=== PATIENT | female | born 1945 | race Caucasian/White ===

== ENCOUNTER 2024-04-25 23:35 | Observation (INO) ==
[2024-04-25] MEDS ORDERED: NITROGLYCERIN SL 0.4 MG/TAB TAB SL PRN (23:53)
--- NOTE | 2024-04-25 23:59 | Emergency Department Note ---
History of Present Illness General Chief Complaint: Cardiac Assessment Stated Complaint: CHEST PAIN, ABNORMAL WATCH ECG Time Seen by Provider: 04/25/24 23:45 History of Present Illness Provider Complaint: chest pain Onset (ago): day(s) 1 Duration: constant and progressively worsening Onset: during rest Pain Location: substernal and left chest Pain Radiation: none Severity: moderate Maximum Pain Intensity: 5 Current Pain Intensity: 4 Quality: + heaviness and + dull Relieved By: + nothing Exacerbated By: + nothing Context: + recent travel; no recent illness, no recent surgery, no recent immobilization, no trauma/injury, no new medications or no history of DVT/PE Associated symptoms: + palpitations; no nausea, no vomiting, no diaphoresis, no dyspnea, no syncope, no fever or no cough On Xarelto for A-fib. Patient states she has not missed any doses. Past Med/Surg History Problem List (Updated 04/26/24 @ 01:03 by Roly Gamboa MD) Palpitations (Acute) Chest pain (Acute) Medical History No pertinent family history 1st degree AV block PVCs (premature ventricular contractions) HLD (hyperlipidemia) HTN (hypertension) A-fib Social History Smoking Status: Never smoker Feels Safe at Home: Yes Physical Exam Vital Signs Vital Signs - 24 hr 04/25/24 23:39 04/25/24 23:51 04/25/24 23:51 Temperature 36.7 C Temperature Source Skin Pulse Rate 75 76 76 Pulse Rate from SpO2 Sensor 76 Respiratory Rate 16 21 Respiratory Effort / Characteristics Non-Labored Respiratory Depth Normal Blood Pressure 149/76 H 137/78 Blood Pressure Mean 100 97 Pulse Oximetry 99 96 Oxygen Delivery Method Room Air Room Air Sepsis Recent Fever Within 48 Hours No Sepsis New/Unexplained Change in Mental Status No Sepsis Action Taken by Nursing No Action Required 04/26/24 00:09 04/26/24 00:19 04/26/24 00:20 Temperature Temperature Source Pulse Rate Pulse Rate from SpO2 Sensor Respiratory Rate Respiratory Effort / Characteristics Non-Labored Spontaneous Respiratory Depth Normal Blood Pressure Blood Pressure Mean Pulse Oximetry 96 96 Oxygen Delivery Method Room Air Room Air Room Air Sepsis Recent Fever Within 48 Hours Sepsis New/Unexplained Change in Mental Status Sepsis Action Taken by Nursing 04/26/24 00:30 Temperature Temperature Source Pulse Rate 70 Pulse Rate from SpO2 Sensor 69 Respiratory Rate 22 Respiratory Effort / Characteristics Respiratory Depth Blood Pressure 127/75 Blood Pressure Mean 92 Pulse Oximetry 96 Oxygen Delivery Method Room Air Sepsis Recent Fever Within 48 Hours Sepsis New/Unexplained Change in Mental Status Sepsis Action Taken by Nursing Physical Exam GENERAL: oriented to person, place, and time. appears well-developed and well- nourished. HENT: Exam performed. - Head: Normocephalic and atraumatic. EYES: Conjunctivae and EOM are normal. Right eye exhibits no discharge. Left eye exhibits no discharge. No scleral icterus. NECK: Normal range of motion. Neck supple. No JVD present. CV: Normal rate, regular rhythm, normal heart sounds and intact distal pulses. There is no peripheral edema. Palpable radial pulses bue. PULM/CHEST: Effort normal and breath sounds normal. No respiratory distress. No stridor. no wheezes. no rales. ABD: The abdomen is soft. There is no tenderness. NEURO: Motor and sensation grossly intact. SKIN: Skin is warm and dry. He is not diaphoretic. PSYCH: normal mood and affect. Behavior is normal. Judgment and thought content normal. Course Course 2345: The patient was evaluated in room B6. A complete history and physical exam was performed Cardiac monitoring: An order was placed for continuous cardiac monitoring. The monitor shows a rate of 80 with sinus rhythm interpreted by me 0103: Vital signs stable. Labs and imaging unremarkable. COVID testing still pending. [facility] team given her chest pain and palpitations. Dr. Cole team notified. Administered Medications Sodium Chloride (Nss) 1,000 mls @ 80 mls/hr IV .[id number] [facility] Stop: 05/25/24 23:44 Last Admin: 04/26/24 00:06 Dose: 80 mls/hr Documented By: DELORIS Discontinued Medications Aspirin (Aspirin Chew 324 Mg) 324 mg PO NOW STA Stop: 04/25/24 23:54 Last Admin: 04/26/24 00:07 Dose: 243 mg Documented By: DELORIS Hydrocodone Bit/Homatropine Methylb (Hydrocodone/Homatropine Syrup 5mg/1.5mg 5ml Udp) 5 ml PO NOW STA Stop: 04/26/24 00:11 Last Admin: 04/26/24 00:24 Dose: 5 ml Documented By: DELORIS Menthol (Cough Drop (Sugar Free) Amaya 24 Amaya/1 Box) 1 amaya BUCCAL NOW STA Stop: 04/26/24 00:11 Last Admin: 04/26/24 00:24 Dose: 1 amaya Documented By: DELORIS Medical Decision Making Laboratory Data Attestation: I reviewed the patient's lab results. 04/25/24 23:55 04/25/24 23:55 Labs: Lab Results 04/25/24 Range/Units 23:55 WBC 10.43 (4.8-10.8) K/ul RBC 4.04 L (4.20-5.40) M/uL Hgb 12.5 (12.0-16.0) g/dl Hct 37.1 (37.0-47.0) % MCV 91.8 (80.0-100.0) fL MCH 30.9 (25.0-34.0) pg MCHC 33.7 (32.0-36.0) g/dL RDW Std Deviation 42.8 (36.4-46.3) fL RDW Coeff of Harsh 12.6 (11.5-14.5) % Plt Count 313 (130-400) K/uL MPV 9.1 L (9.4-12.4) fL Immature Gran % (Auto) 0.4 % Neut % (Auto) 44.0 % Lymph % (Auto) 41.6 % [place] % (Auto) 10.3 % Eos % (Auto) 3.0 % Baso % (Auto) 0.7 % Neut # (Auto) 4.60 (1.40-6.50) K/uL Lymph # (Auto) 4.34 H (1.20-3.40) K/uL Columbia # (Auto) 1.07 H (0.11-0.59) K/uL Eos # (Auto) 0.31 (0.00-0.50) K/uL Baso # (Auto) 0.07 (0.00-0.20) K/uL Immature Gran # (Auto) 0.04 (0.01-0.20) K/uL Sodium 138 (136-145) mmol/L Potassium 3.7 (3.5-5.1) mmol/L Chloride 102 (98-107) mmol/L Carbon Dioxide 26 (21-32) mmol/L Anion Gap 10 (3-11) BUN 23 (6-23) mg/dl Creatinine 1.53 H (0.6-1.2) mg/dl Est Cr Clr Drug Dosing 29.0 ml/min Est GFR ( Amer) 37.6 ml/min Est GFR (Non-Af Amer) 32.5 ml/min BUN/Creatinine Ratio 15.0 (10-20) Glucose 95 (70-99(Fasting)) mg/dl Calcium 9.3 (8.6-10.3) mg/dl Magnesium 2.2 (1.7-2.4) mg/dl Troponin I High Sens 4.8 (0-14) pg/ml Lipase 19 (11-82) U/L Imaging Data Chest x-ray: Attestation: I personally reviewed and interpreted this imaging study as follows: My impression: Chest x-ray negative. Airway clear. No pneumothorax. No consolidation. No cardiomegaly or cephalization.. No free air under the diaphragm. No fractures of the skeletal structures. ECG Data Attestation: I personally reviewed and interpreted this ECG as follows: Rate (beats per minute): 77 Rhythm: normal sinus Findings: + 1st degree AV block; no ST depression, no ST elevation or no prolonged QT MDM Narrative 2345: The patient was evaluated in room B6. A complete history and physical exam was performed Cardiac monitoring: An order was placed for continuous cardiac monitoring. The monitor shows a rate of 80 with sinus rhythm interpreted by me 0103: Vital signs stable. Labs and imaging unremarkable. COVID testing still pending. Patient will be admitted to the [facility] hospitalist team given her chest pain and palpitations. Dr. Cole team notified. Impression & Plan Chest pain, Palpitations Discharge Plan Visit Data Chief Complaint: Cardiac Assessment Stated Complaint: CHEST PAIN, ABNORMAL WATCH ECG ED Provider: Roly Gamboa Discharge Problem: Chest pain, Palpitations Patient Disposition: Being Evaluated by Hospitalist Forms Stand Alone Forms: My [facility] Referrals Referrals: PCP,NO [Physician] - Discharge Problem: Chest pain Qualifiers: Chest pain type: unspecified Qualified Code(s): R07.9 - Chest pain, unspecified
[2024-04-26] MEDS: SODIUM CHLORIDE 0.9% 1,000 ML IV SCH (00:06)
[2024-04-26] MEDS: ASPIRIN CHEW 324 MG PO STA (00:07)
[2024-04-26] MEDS: HYDROcodone/HOMATROPINE SYRUP 5MG/1.5MG 5ML UDP PO STA (00:24)
[2024-04-26] MEDS: COUGH DROP (SUGAR FREE) LOZ 24 LOZ/1 BOX BUCCAL STA (00:24)
[2024-04-26 00:34] LABS: Basophils # (auto) 0.07 K/uL (0.00-0.20); Basophils % (auto) 0.7 %; Eosinophils # (auto) 0.31 K/uL (0.00-0.50); Hematocrit (blood only) 37.1 % (37.0-47.0); Hemoglobin 12.5 g/dl (12.0-16.0); Immature Granulocytes # (auto) 0.04 K/uL (0.01-0.20); Immature Granulocytes % (auto) 0.4 %; Lymphocytes # (auto) 4.34 K/uL (1.20-3.40); Lymphocytes % (auto) 41.6 %; Mean Corpuscular Hemoglobin 30.9 pg (25.0-34.0); Mean Corpuscular Hgb Conc 33.7 g/dL (32.0-36.0); Mean Corpuscular Volume 91.8 fL (80.0-100.0); Mean Platelet Volume 9.1 fL (9.4-12.4); Monocytes # (auto) 1.07 K/uL (0.11-0.59); Monocytes % (auto) 10.3 %; Platelet Count 313 K/uL (130-400); RDW Coefficient of Variation 12.6 % (11.5-14.5); RDW Standard Deviation 42.8 fL (36.4-46.3); Red Blood Count 4.04 M/uL (4.20-5.40); White Blood Count 10.43 K/ul (4.8-10.8)
[2024-04-26 00:44] LABS: Troponin I High Sensitivity 4.8 pg/ml (0-14)
[2024-04-26 00:53] LABS: Calcium 9.3 mg/dl (8.6-10.3); Est GFR (African American) 37.6 ml/min; Est GFR (Non-African American) 32.5 ml/min; Magnesium 2.2 mg/dl (1.7-2.4); Potassium 3.7 mmol/L (3.5-5.1)
[2024-04-26 01:15] LABS: Influenza A virus by PCR Negative (Neg); Influenza B virus by PCR Negative (Neg); RSV by PCR Negative (Neg); SARS CoV2 RNA(COVID-19) Ceph NEGATIVE (Negative)
--- NOTE | 2024-04-26 01:16 | History & Physical Report ---
Date of Service April 26, 2024 Assessment & Plan (1) Palpitations: Plan: 79yo female with history of atrial fibrillation presenting with increased frequency and severity of PVCs over the last several months. Patient is scheduled to have an ablation performed with her home Food Checker in [place] on 05/14/24. She is currently driving from [place] to [place] and has stopped in [place] to have her car serviced. She is quite symptomatic with her PVCs and experiences chest pain as well as some dizziness and shortness of breath. She also reports that her PVCs increase during and after exertion. Electrolytes are presently within normal range. No prior labs for comparison - possibly some element of dehydration given mild elevation in Cr to 1.53. Troponin x 1 is NEGATIVE and no ischemic changes present on EKG. Telemetry review reveals frequent PVCs, bigeminy pattern. -Observation to medical with telemetry -Repeat troponin with AM labs -Check 2D echo -Check TSH -BMP in AM -Cardiology consultation appreciated -Records requested - patient also has access to her records on her phone (2) Post-viral cough syndrome: Plan: Noted. Patient with Covid-19 several weeks ago. Reports cough since. Tested NEGATIVE for Covid-19 today on rapid antigen testing -Menthol drops -Hycodan cough medication PRN (3) HLD (hyperlipidemia): Plan: Chronic -Continue Zetia and Atorvastatin (4) HTN (hypertension): Plan: Blood pressure adequately controlled at present -Hold HCTZ/Valsartan for now - repeat chemistry in AM -Continue Metoprolol succinate - will increase from 37.5mg po daily to 50mg po daily (5) A-fib: Plan: Chronic. No AF noted on monitor at present -Continue Metoprolol - will increase from 37.5mg to 50mg -Continue Rivaroxaban 20mg po daily (6) COLTON on CPAP: Plan: Chronic. Stable. Patient reports compliance with her CPAP -Continue CPAP qHS Plan CAD - per report, non-obstructive -Continue ASA 81mg p daily -Continue Atorvastatin -Continue Metoprolol -Holding Losartan for now Depression - fairly new, patient reports losing several friends this year which has triggered some depression -Continue Bupropion F/E/N - LR at 80mL/hr x 1L, electrolytes WNL, continue PO magnesium, Heart healthy diet as tolerated Ppx - continue home Rivaroxaban Code - Full per discussion with patient Dispo - Observation to medical with telemetry History of Present Illness Chief Complaint: Symptomatic palpitations Primary Care Provider: Luis Miguel Flores Suni Martinez is a pleasant 79yo female with history of HTN, HLP, PAF on Eliquis anticoagulation and Metoprolol as well as PVCs and 1st degree AV block. Patient spends most of her time in [place], [place]. Her [id number]-fvt in [place] recently so she and her partner flew from [place] to [place] several weeks ago. Patient is now planning to drive her bjplrm-ue-cil's car back to [place] (or possibly just to [place] where she can store the care temporarily with family). She is staying locally at the [facility] and has to have her wacwyd-xn-icp's car serviced prior to driving it to [place]. She expects to remain [facility] the [facility] for about 1 week while she waits for the car to be serviced. Patient with known paroxysmal atrial fibrillation for which she takes Metoprolol and Eliquis anticoagulation. This summer she has had a marked increase in the frequency and severity of her PVCs. She follows closely with Cardiology. She had a stress test which she reportedly failed then had a catheterization which reported stable, non-obstructive CAD. She reports that her PVCs occur daily and frequently occur post-exertion. She states she likes to walk a lot but has avoided doing so because the activity w ould trigger a lot of PVCs. She also reports some decreased exercise tolerance. She is scheduled to have ablation of the PVCs on 05/14/24 with her Food Checker in [place]. Patient reports a lot of PVCs yesterday as well as some chest discomfort. She reports shortness of breath and dizziness that occur with her PVCs. She has not fallen or had any syncopal events. This morning she was briefly in atrial fibrillation and later in the afternoon she was experiencing a lot of PVCs which prompted her to seek medical attention. She did have Covid-19 infection several weeks ago and has an ongoing cough productive for some mucus. Denies fever, chills. In the ER she is afebrile, HD stable and non-toxic in appearance Telemetry reviewed - revealed frequent PVCs, bigeminy pattern ER Course: Menthol lozenge Hydrocodone/Homatropine ASA 324mg NSS at 80mL/hr x 1L Allergies Allergy/AdvReac Type Severity Reaction Status Date / Time bee venom protein (honey bee) Allergy Severe Anaphylaxis Verified 04/26/24 01:19 sumatriptan [From Imitrex] Allergy Intermediate chest Verified 04/26/24 01:19 pressure Home Medications Medication Instructions Recorded Confirmed Type aspirin 81 mg tablet,delayed 81 mg PO DAILY 04/26/24 04/26/24 History release atorvastatin 20 mg tablet 20 mg PO DAILY 04/26/24 04/26/24 History bupropion HCl 300 mg 24 hr tablet, 300 mg PO DAILY 04/26/24 04/26/24 History extended release epinephrine 0.3 mg/0.3 mL 0.3 ml IM UD PRN bee allergy 04/26/24 04/26/24 History injection, auto-injector ezetimibe 10 mg tablet 10 mg PO DAILY 04/26/24 04/26/24 History hydrocodone-homatropine 5 mg-1.5 5 ml PO .EVERY 4-6 HOURS PRN Cough 04/26/24 04/26/24 History mg/5 mL oral syrup magnesium oxide 400 mg (241.3 mg 400 mg PO DAILY 04/26/24 04/26/24 History magnesium) tablet methocarbamol 500 mg tablet 500 mg PO DAILY 04/26/24 04/26/24 History metoprolol succinate 25 mg 37.5 mg PO DAILY 04/26/24 04/26/24 History tablet,extended release 24 hr ondansetron 4 mg disintegrating 4 mg PO UD 04/26/24 04/26/24 History tablet potassium chloride 10 mEq 10 meq PO DAILY 04/26/24 04/26/24 History capsule,extended release rivaroxaban 20 mg tablet (Xarelto) 20 mg PO DAILY 04/26/24 04/26/24 History valsartan 160 1 tab PO DAILY 04/26/24 04/26/24 History mg-hydrochlorothiazide 12.5 mg tablet Past Med/Surg History Problem List (Updated 04/26/24 @ 01:59 by Lela Cole DO) Post-viral cough syndrome Factor V Leiden Palpitations (Acute) Chest pain (Acute) Medical History (Updated 04/26/24 @ 01:59 by Lela Cole DO) COLTON on CPAP 1st degree AV block PVCs (premature ventricular contractions) HLD (hyperlipidemia) HTN (hypertension) A-fib Surgical History (Updated 04/26/24 @ 01:56 by Lela Cole DO) History of hysterectomy History of tonsillectomy History of cholecystectomy History of hand surgery Family History (Updated 04/26/24 @ 01:56 by Lela Cole DO) Father Cancer Social History Smoking Status: Never smoker Feels Safe at Home: Yes Review of Systems Review of Systems: All systems reviewed & are unremarkable except as noted in HPI & below Physical Exam Physical Exam: General: patient resting comfortably, NAD, non-toxic in appearance, AA&O x 4 Skin: warm, dry, intact, no rashes or lesions HEENT: NC/AT, PERRL, EOMI, anicteric sclera, conjunctiva without injection, external ear normal to inspection and nontender, nares patent, moist mucus membranes, dentition intact, no oropharyngeal lesions, neck supple, trachea midline, no LAD, no thyromegaly, no JVD Heart: +S1/S2, regular with frequent ectopy, no m/r/g Lungs: equal air entry bilaterally, no rales/rhonchi/wheezes, patient with persistent cough made worse by coughing, productive for yellow sputum Abd: +BS, soft, NT/ND, no masses/organomegaly/ascites Ext: warm, 2+ pulses in UE/LE bilaterally, no clubbing/cyanosis or edema Neuro: nonfocal, patient AA&O x 4, speech intact, no facial droop, moving all extremities on command with equal strength 5/5 Results & Data Results & Data Vital Signs (Past 12 Hours) Vital Signs Temp Pulse Resp BP Pulse Ox O2 Del Method 04/26/24 00:30 70 22 127/75 96 Room Air 04/26/24 00:20 96 Room Air 04/26/24 00:19 96 Room Air 04/26/24 00:09 Room Air 04/25/24 23:51 76 21 137/78 96 Room Air 04/25/24 23:51 76 04/25/24 23:39 36.7 C 75 16 149/76 H 99 Room Air Laboratory Results Laboratory Results WBC 10.43 K/ul (4.8-10.8) 04/25/24 23:55 RBC 4.04 M/uL (4.20-5.40) L 04/25/24 23:55 Hgb 12.5 g/dl (12.0-16.0) 04/25/24 23:55 Hct 37.1 % (37.0-47.0) 04/25/24 23:55 MCV 91.8 fL (80.0-100.0) 04/25/24 23:55 MCH 30.9 pg (25.0-34.0) 04/25/24 23:55 MCHC 33.7 g/dL (32.0-36.0) 04/25/24 23:55 RDW Std Deviation 42.8 fL (36.4-46.3) 04/25/24 23:55 RDW Coeff of Harsh 12.6 % (11.5-14.5) 04/25/24 23:55 Plt Count 313 K/uL (130-400) 04/25/24 23:55 MPV 9.1 fL (9.4-12.4) L 04/25/24 23:55 Immature Gran % (Auto) 0.4 % 04/25/24 23:55 Neut % (Auto) 44.0 % 04/25/24 23:55 Lymph % (Auto) 41.6 % 04/25/24 23:55 Greenlee % (Auto) 10.3 % 04/25/24 23:55 Eos % (Auto) 3.0 % 04/25/24 23:55 Baso % (Auto) 0.7 % 04/25/24 23:55 Neut # (Auto) 4.60 K/uL (1.40-6.50) 04/25/24 23:55 Lymph # (Auto) 4.34 K/uL (1.20-3.40) H 04/25/24 23:55 Greenlee # (Auto) 1.07 K/uL (0.11-0.59) H 04/25/24 23:55 Eos # (Auto) 0.31 K/uL (0.00-0.50) 04/25/24 23:55 Baso # (Auto) 0.07 K/uL (0.00-0.20) 04/25/24 23:55 Immature Gran # (Auto) 0.04 K/uL (0.01-0.20) 04/25/24 23:55 PT 15.6 Seconds (9.0-12.0) H 04/25/24 23:55 INR 1.5 (0.9-1.1) H 04/25/24 23:55 APTT 44 Seconds (21-31) H 04/25/24 23:55 PTT Ratio 1.6 04/25/24 23:55 Sodium 138 mmol/L (136-145) 04/25/24 23:55 Potassium 3.7 mmol/L (3.5-5.1) 04/25/24 23:55 Chloride 102 mmol/L (98-107) 04/25/24 23:55 Carbon Dioxide 26 mmol/L (21-32) 04/25/24 23:55 Anion Gap 10 (3-11) 04/25/24 23:55 BUN 23 mg/dl (6-23) 04/25/24 23:55 Creatinine 1.53 mg/dl (0.6-1.2) H 04/25/24 23:55 Est Cr Clr Drug Dosing 29.0 ml/min 04/25/24 23:55 Est GFR ( Amer) 37.6 ml/min 04/25/24 23:55 Est GFR (Non-Af Amer) 32.5 ml/min 04/25/24 23:55 BUN/Creatinine Ratio 15.0 (10-20) 04/25/24 23:55 Glucose 95 mg/dl (70-99(Fasting)) 04/25/24 23:55 Calcium 9.3 mg/dl (8.6-10.3) 04/25/24 23:55 Magnesium 2.2 mg/dl (1.7-2.4) 04/25/24 23:55 Troponin I High Sens 4.8 pg/ml (0-14) 04/25/24 23:55 Lipase 19 U/L (11-82) 04/25/24 23:55 SARS-CoV-2 (PCR) NEGATIVE (Negative) 04/26/24 00:22 Influenza Type A (PCR) Negative (Neg) 04/26/24 00:22 Influenza Type B (PCR) Negative (Neg) 04/26/24 00:22 RSV (RT-PCR) Negative (Neg) 09/08/24 00:22 Diagnostic Findings CXR - per my interpretation - study with no obvious infiltrate, edema or pneumothorax, normal appearing cardiac silhouette ECG Additional Comments: EKG with SR at 77bpm, 1st degree AV block with JT=990, QRS=92, FCr=160, no acute ischemic findings, no prior studies PG Care Time/CCT Total # of Minutes Spent Total Time Spent with Patient: Total time spent is greater than 50% in coordination of care (as documented) at patient's floor/unit and/or counseling patient: Coding Level of Care Code 91807 INT INP/OBS CARE 3/75MIN Diagnoses Palpitations R00.2 Post-viral cough syndrome R05.8 HLD (hyperlipidemia) E78.5 HTN (hypertension) I10 A-fib I48.91 COLTON on CPAP G47.33
[2024-04-26 01:18] LABS: INR 1.5 (0.9-1.1); Partial Thromboplastin Ratio 1.6; Partial Thromboplastin Time 44 Seconds (21-31); Prothrombin Time 15.6 Seconds (9.0-12.0)
[2024-04-26] MEDS ORDERED: MELATONIN 3 MG TAB PO PRN (05:59)
[2024-04-26] MEDS: LACTATED RINGER'S 1,000 ML IV SCH (06:36)
--- NOTE | 2024-04-26 06:58 | Hospitalist Progress Note ---
Date of Service April 26, 2024 Assessment & Plan (1) Post-viral cough syndrome: (2) Palpitations: (3) HTN (hypertension): (4) A-fib: (5) COLTON on CPAP: (6) CAD (coronary artery disease): (7) Depression: (8) HLD (hyperlipidemia): Plan Palpitations - 79yo female with history of atrial fibrillation presenting with increased frequency and severity of PVCs over the last several months. Patient is scheduled to have an ablation performed with her home Tr[employer] Section Supervisor in [place] on 05/14/24. She is currently driving from [place] to [place] and has stopped in [place] to have her car serviced. - She is quite symptomatic with her PVCs and experiences chest pain as well as some dizziness and shortness of breath. She also reports that her PVCs increase during and after exertion. - TSH wnl - trop wnl on arrival - echo; pending - cardiology consulted; pending Post-viral cough syndrome Noted. Patient with Covid-19 several weeks ago. Reports cough since. Tested NEGATIVE for Covid-19 today on rapid antigen testing -Menthol drops HLD (hyperlipidemia) Chronic -Continue Zetia and Atorvastatin HTN (hypertension) Blood pressure adequately controlled at present if not on the lower end -Hold HCTZ/Valsartan for now - repeat chemistry in AM -Continue Metoprolol succinate - increased from 37.5mg po daily to 50mg po daily A-fib Chronic. No AF noted on monitor at present -Continue Metoprolol - increased from 37.5mg to 50mg -Continue Rivaroxaban 20mg po daily COLTON on CPAP Chronic. Stable. Patient reports compliance with her CPAP -Continue CPAP qHS CAD - per report, non-obstructive -Continue ASA 81mg p daily -Continue Atorvastatin -Continue Metoprolol -Holding Losartan for now for low BPs Depression - fairly new, patient reports losing several friends this year which has triggered some depression -Continue Bupropion VTE ppx - continue home Rivaroxaban Admission and Anticipated Discharge Date Admission Date: April 26, 2024 Supervising Physician Co-Signing Physician Notes I personally examined the patient and verified howe points of history and exam, discussed case, and agree with decision making and plan documented by Dr. Dasilva. Patient evaluated by cardiology today for patient on admission for chest pain and palpitations in setting of known paroxysmal A-fib and PVCs. Patient reports increased exertional dyspnea with short distances. She is traveling back from [place] by car to her home in [place]. Cardiology was consulted, echocardiogram was performed, and patient is recommended to maintain follow-up with her state editor in [place] to complete ablation scheduled this month. Metoprolol was increased on admission and patient seems to be tolerating well. Monitor overnight on telemetry and anticipate discharge tomorrow. Recommend providing patient with copy of her records so that she can take this home with her. Patient reports her niece will be flying in from [place] to help with the drive back home. Subjective Today, pt seen at bedside. She states that she has been struggling with symptomatic PVCs for quite awhile and had acute worsening over the past few months. She follows with a state editor in [place] who was planning to do an ablation 05/14 for her PVCs. She states that at rest she generally feels well but with exertion is when the symptoms of palpitations get bad and sometimes are accompanied by chest pain as well. She also notes cough for last few weeks that seems to linger, more dry than it was originally but persistent, had COVID a few weeks back. Feeling okay at rest today. Did have a short burst of chest pain when in the room that resolved. No shortness of breath at rest. No nausea or vomiting. Review of Systems Review of Systems: Per HPI. Physical Exam Physical Exam: General:Alert and oriented, no acute distress, HEENT: Normocephalic, moist oral mucosa, Cardio: Regular rate and rhythm, no murmur, Resp:Lungs clear to auscultation b/l, no wheezes or rhonchi, Skin: Warm, pink, dry, Results & Data Results & Data Vital Signs (Past 12 Hours) Vital Signs Temp Pulse Pulse Resp BP BP Pulse Ox 04/26/24 06:04 36.5 C 63 18 111/67 99 04/26/24 05:43 36.5 C 04/26/24 05:24 57 L 21 97/53 L 94 04/26/24 05:00 59 L 18 101/61 95 04/26/24 04:03 60 04/26/24 03:36 62 17 94/60 L 97 04/26/24 03:06 62 18 113/73 98 04/26/24 02:33 66 22 129/70 99 04/26/24 01:30 69 21 136/76 97 04/26/24 01:06 67 23 105/79 98 04/26/24 00:30 70 22 127/75 96 04/26/24 00:20 96 04/26/24 00:19 96 04/26/24 00:09 04/25/24 23:51 76 21 137/78 96 04/25/24 23:51 76 04/25/24 23:39 36.7 C 75 16 149/76 H 99 O2 Del Method 04/26/24 06:04 Room Air 04/26/24 05:43 04/26/24 05:24 Room Air 04/26/24 05:00 Room Air 04/26/24 04:03 04/26/24 03:36 Room Air 04/26/24 03:06 Room Air 04/26/24 02:33 Room Air 04/26/24 01:30 Room Air 04/26/24 01:06 Room Air 04/26/24 00:30 Room Air 04/26/24 00:20 Room Air 04/26/24 00:19 Room Air 04/26/24 00:09 Room Air 04/25/24 23:51 Room Air 04/25/24 23:51 04/25/24 23:39 Room Air Resident Activity Tracking Resident Involvement: Resident Care Provided Care Provided: Adult Hospital Medicine
[2024-04-26] MEDS: ASPIRIN 81 MG ECTAB PO SCH (07:06)
[2024-04-26] MEDS: METOPROLOL SUCC 50MG EXT REL TAB PO SCH ×2 (07:06→19:00)
[2024-04-26] MEDS: MAGNESIUM OXIDE 400 MG TAB PO SCH (07:07)
[2024-04-26] MEDS: METHOCARBAMOL 500 MG TABLET PO SCH (07:07)
[2024-04-26] MEDS: EZETIMIBE 10 MG TAB PO SCH (07:07)
[2024-04-26] MEDS: buPROPion XL 300 MG TABCR PO SCH (07:08)
[2024-04-26] MEDS: ATORVASTATIN 20 MG TAB PO SCH (07:08)
--- NOTE | 2024-04-26 07:59 | XRay Report ---
XR chest 1V portable HISTORY: 79 years-old Female Chest pain, nonspecific COMPARISON: None TECHNIQUE: AP view of the chest FINDINGS: Patient is mildly rotated. Mild chronic appearing interstitial coarsening. No pneumothorax, pleural e ffusion or airspace consolidation. The bones appear intact. IMPRESSION: No acute process. ACT 112: Negative or not required by law. The above report was generated using voice recognition software. It may contain grammatical, syntax o r spelling errors. Electronically signed by: Vinny Lugo M.D. 04/26/2024 7:58 AM
[2024-04-26] MEDS ORDERED: COUGH DROP (SUGAR FREE) LOZ 24 LOZ/1 BOX BUCCAL PRN (08:39)
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
[2024-04-26] MEDS: HYDROcodone/HOMATROPINE SYRUP 5MG/1.5MG 5ML UDP PO PRN (09:16)
[2024-04-26] MEDS ORDERED: Nursing to Pharmacy Communication SCH (12:00)
[2024-04-26] MEDS: RIVAROXABAN 15 MG TAB PO SCH (15:18)
--- NOTE | 2024-04-26 15:30 | XCELERA ---
[id number] [id number]
--- NOTE | 2024-04-26 22:33 | Electrocardiogram Report ---
Test Reason : Blood Pressure : */* mmHG Vent. Rate : 77 BPM Atrial Rate : 77 BPM P-R Int : 214 ms QRS Dur : 92 ms QT Int : 376 ms P-R-T Axes : 82 7 43 degrees QTcB Int : 425 ms Sinus rhythm with 1st degree A-V block Otherwise normal ECG No previous ECGs available Confirmed by Marcin Cornelius ([id number]) on 04/26/2024 10:32:55 PM Referred By: REFERRED SELF Confirmed By: Marcin Cornelius
[2024-04-27 06:26] LABS: Hematocrit (blood only) 32.1 % (37.0-47.0); Hemoglobin 10.7 g/dl (12.0-16.0); Mean Corpuscular Hemoglobin 30.8 pg (25.0-34.0); Mean Corpuscular Hgb Conc 33.3 g/dL (32.0-36.0); Mean Corpuscular Volume 92.5 fL (80.0-100.0); Platelet Count 248 K/uL (130-400); RDW Coefficient of Variation 12.8 % (11.5-14.5); RDW Standard Deviation 43.6 fL (36.4-46.3); Red Blood Count 3.47 M/uL (4.20-5.40); White Blood Count 6.05 K/ul (4.8-10.8)
[2024-04-27 06:47] LABS: Calcium 8.2 mg/dl (8.6-10.3); Creatinine Clr Calc Pharmacy 41.5 ml/min; Est GFR (African American) 57.3 ml/min; Est GFR (Non-African American) 49.5 ml/min; Potassium 3.9 mmol/L (3.5-5.1)
[2024-04-27 07:39] VITALS: BP 110/55; PULSE 70; RESP 16; TEMP 98.4; O2SAT 95
--- NOTE | 2024-04-27 10:26 | Discharge Summary ---
Date of Service April 27, 2024 Admission HPI Per Admitting Provider Suni Martinez is a pleasant 79yo female with history of HTN, HLP, PAF on Eliquis anticoagulation and Metoprolol as well as PVCs and 1st degree AV block. Patient spends most of her time in [place], [place]. Her oxulck-ul-htx in [place] recently so she and her partner flew from [place] to [place] several weeks ago. Patient is now planning to drive her bjusot-[id number]'s car back to [place] (or possibly just to [place] where she can store the care temporarily with family). She is staying locally at the [facility] and has to have her fskvvm-ej-sua's car serviced prior to driving it to [place]. She expects to remain in the [facility] for about 1 week while she waits for the car to be serviced. Patient with known paroxysmal atrial fibrillation for which she takes Metoprolol and Eliquis anticoagulation. This summer she has had a marked increase in the frequency and severity of her PVCs. She follows closely with Cardiology. She had a stress test which she reportedly failed then had a catheterization which reported stable, non-obstructive CAD. She reports that her PVCs occur daily and frequently occur post-exertion. She states she likes to walk a lot but has avoided doing so because the activity would trigger a lot of PVCs. She also reports some decreased exercise tolerance. She is scheduled to have ablation of the PVCs on 05/14/24 with her Surgery Scheduling Coordinator in [place]. Patient reports a lot of PVCs yesterday as well as some chest discomfort. She reports shortness of breath and dizziness that occur with her PVCs. She has not fallen or had any syncopal events. This morning she was briefly in atrial fibrillation and later in the afternoon she was experiencing a lot of PVCs which prompted her to seek medical attention. She did have Covid-19 infection several weeks ago and has an ongoing cough productive for some mucus. Denies fever, chills. In the ER she is afebrile, HD stable and non-toxic in appearance Telemetry reviewed - revealed frequent PVCs, bigeminy pattern ER Course: Menthol lozenge Hydrocodone/Homatropine ASA 324mg NSS at 80mL/hr x 1L Admission Exam Per Admitting Provider General: patient resting comfortably, NAD, non-toxic in appearance, AA&O x 4 Skin: warm, dry, intact, no rashes or lesions HEENT: NC/AT, PERRL, EOMI, anicteric sclera, conjunctiva without injection, external ear normal to inspection and nontender, nares patent, moist mucus membranes, dentition intact, no oropharyngeal lesions, neck supple, trachea midline, no LAD, no thyromegaly, no JVD Heart: +S1/S2, regular with frequent ectopy, no m/r/g Lungs: equal air entry bilaterally, no rales/rhonchi/wheezes, patient with persistent cough made worse by coughing, productive for yellow sputum Abd: +BS, soft, NT/ND, no masses/organomegaly/ascites Ext: warm, 2+ pulses in UE/LE bilaterally, no clubbing/cyanosis or edema Neuro: nonfocal, patient AA&O x 4, speech intact, no facial droop, moving all extremities on command with equal strength 5/5 Principal Diagnosis Palpitations, PVCs Discharge Exam General:Alert and oriented, no acute distress, HEENT: Normocephalic, moist oral mucosa, Cardio: Regular rate and rhythm, no murmur, Resp:Lungs clear to auscultation b/l, no wheezes or rhonchi, Skin: Warm, pink, dry, Discharge Data Allergies Allergy/AdvReac Type Severity Reaction Status Date / Time bee venom protein (honey bee) Allergy Severe Anaphylaxis Verified 04/26/24 01:19 sumatriptan [From Imitrex] Allergy Intermediate chest Verified 04/26/24 01:19 pressure Consultations 04/26/24 01:02 ED Decision to Admit Stat 04/26/24 01:45 Consult Cardiology Routine Hospital Course (1) Post-viral cough syndrome: (2) Palpitations: (3) HTN (hypertension): (4) A-fib: (5) COLTON on CPAP: (6) CAD (coronary artery disease): (7) Depression: (8) HLD (hyperlipidemia): Plan Pt is a 79 yo female who presents to the hospital for chest pain and palpitations. Palpitations - 79yo female with history of atrial fibrillation presenting with increased frequency and severity of PVCs over the last several months. Patient is scheduled to have an ablation performed with her home Surgery Scheduling Coordinator in [place] on 05/14/24. She is currently driving from [place] to [place] and has stopped in [place] to have her car serviced. - She is quite symptomatic with her PVCs and experiences chest pain as well as some dizziness and shortness of breath. She also reports that her PVCs increase during and after exertion. - TSH wnl, trop wnl on arrival and repeat, - echo; EF 65-70% no wall abnormalities, mitral + tricuspid regurg - cardiology consulted; no further intervention here, agree with ablation with home postal inspector on 05/14 Post-viral cough syndrome Chest pain - had Covid-19 several weeks ago, reports cough since, tested NEGATIVE for Covid-19 today on rapid antigen testing on admission - continue supportive care for this - chest pain appears to be more MSK in nature given neg cardiac work up so far and sudden nature of starting and stopping randomly, such as laying at rest and it starts and stops - will send with nicko ortega HTN (hypertension) Blood pressure adequately controlled at present if not on the lower end - held HCTZ/Valsartan for low pressures, continue to hold on D/C as pressure has been good if not a bit low at times - continued on home Metoprolol, but increased to 50mg daily prior to and through discharge CAD - per report, non-obstructive - follows with cardio in [place], had recent cath with them which did not require stroke - plan to follow up with them on discharge Total Time Total Time Spent Total Time Spent (In Minutes): <30 Discharge Plan Discharge Items Patient Disposition: Home - Self-Care Reason For Visit: PALPITATIONS Discharge Diagnosis: Palpitations, PVCs Activity: As commented below Activity Comment: As tolerated. Non-emergency contact: Primary Care Provider and Surgery Scheduling Coordinator Call non-emergency contact if: you have any medication questions and your symptoms worsen Follow-up/Referrals: Luis Miguel Flores [Other] Diet: Regular Addtl Attending Provider Instructions: You were admitted to the hospital for chest pain and palpitations. As you know, you do have PVCs or "extra beats" that can cause the sensation of palpitations. Our cardiology folks saw you during your visit here and feel comfortable with you following up with your postal inspector in [place] as planned in about 2 weeks. We believe that the reason your palpitations seem to have gotten worse is because with your travels you have not been hydrating as well, and just like activity, dehydration can raise your heart rate and give more sensation of p alpitations. Goal fluid goal for you should be 60-80 ounces of noncaffeinated fluids. Many people also find that reducing or stopping caffeine intake helps with palpitations as well. We did also increase your metoprolol dosing from the dosing you were on to 50 mg dosing. A new script was send to [facility] in [place], which appeared to be close to your hotel on the map. I think with your post-COVID dry cough that some or all of the chest pain that you experienced is due to muscle spasms or strain of the muscles in between your ribs that expand and contract as you breath, and do so more suddenly when you cough. Your kidney function has been okay here, so if you do not have a history of kidney disease or stomach ulcers, you can try 200-400 mg Advil/ibuprofen for this. If you have had these issues before, you can try the topical form called Voltaren, which has been sent to the pharmacy for you. You can otherwise continue to use over the counter cough and cold medicines as needed to help your symptoms. I have also sent a medication called Tessalon Perles to your pharmacy, which should help with the cough. Please hold your valsartan-HCTZ medication since your blood pressure was noted to be low here in the hospital. You should call your primary care physician today or tomorrow, as well as your postal inspector, to let them know you had been in the hospital. You should plan to follow up with both shortly after you return to [place]. Pending Studies at Discharge: No Stand-Alone Forms: [facility] Medications and DC Order Prescriptions: New metoprolol succinate 50 mg Tablet Extended Release 24 Hr 50 mg PO 2100 Qty: 30 1RF diclofenac sodium [Voltaren Arthritis Pain] 1 % gel 4 g topical QID PRN (Reason: Apply to areas of pain. Do not ingest.) Qty: 100 0RF Rx Instructions: apply to single knee, ankle, foot; for foot includes sole/toes/top of foot benzonatate 100 mg capsule 100 mg PO TID PRN (Reason: cough) 5 Days Qty: 15 0RF Continued ezetimibe 10 mg tablet 10 mg PO DAILY Xarelto 20 mg tablet 20 mg PO DAILY Rx Instructions: take with food methocarbamol 500 mg tablet 500 mg PO DAILY atorvastatin 20 mg tablet 20 mg PO DAILY bupropion HCl 300 mg tablet extended release 24 hr 300 mg PO DAILY potassium chloride 10 mEq capsule, extended release 10 meq PO DAILY aspirin 81 mg Tablet,Delayed Release (Dr/Ec) 81 mg PO DAILY magnesium oxide 400 mg (241.3 mg magnesium) tablet 400 mg PO DAILY epinephrine 0.3 mg/0.3 mL auto-injector 0.3 ml IM UD PRN (Reason: bee allergy) ondansetron 4 mg tablet,disintegrating 4 mg PO UD Held valsartan-hydrochlorothiazide 160-12.5 mg tablet 1 tab PO DAILY Hold Instructions: Resume on 05/18/24. Hold this medication until you have followed up with your family doctor or postal inspector, as your blood pressure was low in the hospital Discontinued metoprolol succinate 25 mg tablet extended release 24 hr 37.5 mg PO DAILY hydrocodone-homatropine 5-1.5 mg/5 mL syrup 5 ml PO .EVERY 4-6 HOURS PRN (Reason: Cough) Discharge Orders: Discharge Order (Routine); Ordered 04/27/24 Ordered By: Kassy Dasilva Admission Data Admit Date/Time: 04/26/24 01:45 Attending Provider: Benito Holt Admit Provider: Lela Cole Primary Care Provider: Luis Miguel Flores Other Providers: Marcin Cornelius; Lela Cole Other Interventions: Discharge Summary Assessment (RN) Last Done: 04/27/24 11:34 Supervising Physician Co-Signing Physician Notes I personally examined the patient and verified all howe points of history and exam, discussed case, and agree with decision making with Dr Dasilva Feels okay. Would very much like to get out of the hospital. Changing her travel plans to fly instead of drive, and will be staying at family's house for a few days during part of her trip to spread things out more. Has follow-up with her primary postal inspector back home. Vitals noted, in general she is awake and alert pleasant no distress. HEENT normocephalic atraumatic mucous membranes moist. Breathing unlabored no accessory muscle use good effort. Skin shows no rashes no pallor or icterus. Neuro without focal deficits. Ectopy/tricuspid regurgsafe/stable for home. Safe to traveldiscussed not overexerting, and following closely with cardiology back home. Otherwise as above Resident Activity Tracking Resident Involvement: Resident Care Provided Care Provided: Adult Hospital Medicine
--- NOTE | 2024-04-27 17:17 | Billing Data ---
Date of Service April 27, 2024 Coding Level of Care Code 85059 IN/OBS DISCH 30 MIN/LESS
== END 2024-04-27 12:01 | disposition home or self-care (01) ==
LOC: ED 23:35 → 2N 23:35 → SUATTDRO 04-26 01:45 → 2N 04-26 05:43